=== PATIENT | male | born 1975 | race Two or more races ===

== ENCOUNTER 2021-10-08 14:35 | Emergency (ER) | payer OTHER ==
[2021-10-08 15:04] VITALS: BMI 26.6
[2021-10-08] MEDS ORDERED: DIPHTH,PERTUSS(ACELL),TET 0.5 ML DISP.SYRIN IM ONE ×2 (16:20→16:26)
[2021-10-08] MEDS ORDERED: IBUPROFEN 400 MG TABLET (FP) PO ONE ×2 (16:21→16:25)
[2021-10-08 17:48] VITALS: BP 142/98; PULSE 78; TEMP 97.9
== END 2021-10-08 19:55 | disposition short-term general hospital (02) ==
LOC: JER 14:35
PROC: 3E0234Z Introduction of Serum, Toxoid and Vaccine into Muscle, Percutaneous Approach (ICD-10-PCS; principal; 2021-10-08)
DX: T22.211A Burn of second degree of right forearm, initial encounter (principal); T23.201A Burn of second degree of right hand, unspecified site, initial encounter; X04.XXXA Exposure to ignition of highly flammable material, initial encounter
CPT/HCPCS: 90471; 90715; 99285-25